=== PATIENT | female | born 1970 | race African-American/Black ===

== ENCOUNTER 2016-11-28 12:37 | Outpatient (CLI) | payer OTHER ==
--- NOTE | 2016-11-28 16:45 | MMO ---
BILATERAL SCREENING MAMMOGRAMS: DATE: 11/28/16 Reference made to prior mammograms dating back to 10/04/11. This patient's mammogram was interpreted with the assistance of computer-aided detection. FINDINGS: There are scattered fibroglandular elements bilaterally. There are scattered calcifications of each breast. Stable asymmetric density involves the middle depth inner right breast. There has been no si gnificant interval detrimental change. IMPRESSION: BIRADS 2: Benign Finding(s) Annual screening mammography is recommended. POS: [facility]
== END 2016-11-28 12:38 | disposition home or self-care (01) ==
LOC: MAMMO 12:37
PROVIDERS: ATTEND Family Medicine
DX: Z12.31 Encounter for screening mammogram for malignant neoplasm of breast (principal)
CPT/HCPCS: 77067; G0202